=== PATIENT | female | born 1945 | race Caucasian/White ===

== ENCOUNTER → 2020-02-16 | Outpatient (CLI) | payer MEDICARE ==
[~2020-02-16] VITALS: Ht 160 cm; Wt 67.3 kg
[~2020-02-16] MED LIST: LIDOCAINE 1% INJ 20 ML 20 ML VIAL INJ ONE
--- NOTE | 2020-02-16 19:36 | Diagnostic Imaging Report ---
INDICATION: Left thyroid mass. Patient presents for ultrasound-guided biopsy. Patient was brought to the procedure and placed on table in the supine position. Ultrasound imaging of the left neck was performed to evaluate appropriate entry site. Total of 4 passes were made into the hypoechoic partially calcified mass in the left lobe of the thyroid utilizing 25-gauge needles and fine-needle aspiration technique. A single pass was made with the Rotex needle. Hemostasis was obtained. Patient tolerated the procedure well and left the department in stable condition. IMPRESSION: Successful ultrasound-guided fine-needle aspiration and Rotex biopsy of the left lobe thyroid partially calcified mass. Pathology results are currently pending. Dictated by: Dictated on workstation # [id number]
== END ==
LOC: RAD 11:53
PROVIDERS: ATTEND Otolaryngology Otolaryngology/Facial Plastic Surgery
DX: E04.1 Nontoxic single thyroid nodule (principal)